=== PATIENT | female | born 1965 | race Caucasian/White ===

== ENCOUNTER 2019-12-31 11:59 | Inpatient (IN) | payer MEDICARE, OTHER ==
[~2019-12-31] VITALS: Ht 160 cm; Wt 91.6 kg
[2019-12-31] MEDS ORDERED: ACETAMINOPHEN 325 MG TABLET PO PRN (14:30)
[2019-12-31] MEDS ORDERED: BLOOD SUGAR DIAGNOSTIC 1 EACH STRIP IN ONE (14:30)
[2019-12-31] MEDS ORDERED: MAGNESIUM HYDROXIDE 30 ML UDC PO PRN (14:30)
--- NOTE | 2019-12-31 15:03 | NUR ---
RN-CO: Per patient she is not allergic to Restoril and Ativan.
[2019-12-31] MEDS ORDERED: ATEN25TA PO (15:07)
[2019-12-31] MEDS ORDERED: OXYC1TAB8 PO (15:07)
[2019-12-31] MEDS ORDERED: CLON0.5T4 PO (15:07)
--- NOTE | 2019-12-31 15:30 | NUR ---
GPS/RN-NOTES ADMITTED 54 YEARS OLD FEMALE .PATIENT WAS A DIRECT ADMIT FROM [facility]. PATIENT ON 5150 HOLD FOR DTS AND GD ADULT. UPON FACE TO FACE ASSESSMENT, PATIENT A/O X3 AMBULATORY STEADY GAIT. PATIENT DENIES SI/HI AT THIS TIME. PATIENT STATED" I DID NOT EAT FOR 7DAYS AND I HAVE PROBLEM WITH FOOD BECAUSE I HAVE GERD,I YOU PLEASE GIVE ME AT LEAST A SANDWICH I'M VERY HUNGRY".EGG SALAD SANDWICH WAS GIVEN TO THE PATIENT. PATIENT TOLERATED WELL. PATIENT REFUSED TO SIGN ALL ADMISSION PAPERS.STATED" I'M VERY TIRED ,CAN I REST". CONTRABAND AND FULL BODY ASSESSMENT DONE. PATIENT'S RIGHT BOOKLET AND ADVISEMENT WAS GIVEN TO THE PATIENT. PATIENT WAS ORIENTED IN THE UNIT AND UNIT POLICIES. PATIENT'S DOROTHY KATHLEEN [phone] MADE AWARE OF THE ADMISSION. DR. CUNNINGHAM MADE AWARE WITH ORDERS. ALSO RAFI DOMINGUEZ SEEN THE PATIENT AND WILL RECONCILE PT'S. MEDICATIONS. PATIENT REFUSED TO GIVE X1 WHITE RING ,STATED " I WANT TO WEAR IT". WILL ENDORSE TO INCOMING SHIFT FOR CONTINUITY OF CARE.
[2019-12-31 16:00] VITALS: BP 130/64
--- NOTE | 2019-12-31 16:41 | NUR ---
RN-CO: DR DOMINGUEZ MADE AWARE OF THE ADMISSION AND TO RECONCILE HOME MEDICATIONS.
[2019-12-31] MEDS: LORAZEPAM 0.5 MG TABLET PO PRN ×2 (17:08→21:16)
--- NOTE | 2019-12-31 17:15 | NUR ---
GPS/RN-NOTES NOTED PATIENT WITH HYPERVERBAL,PARANOID BEHAVIOR.STATED" I'M VERY ANXIOUS AND THOSE PEOPLE LIES ,WHAT EVER THEY SAID AND WRITE IS A LIE". OFFERED ATIVAN AND AGREED.ATIVAN 0.5MG P.O GIVEN PRN ORDER. WILL CONT. MONITORING FOR SAFETY AND BEHAVIOR.
[2019-12-31] MEDS: ATENOLOL 25 MG TABLET PO SCH (18:06)
--- NOTE | 2019-12-31 18:16 | NUR ---
GPS/RN-NOTES PATIENT EATING DINNER IN THE ROOM CALM,NO ACUTE DISTRESS NOTED.
[2019-12-31] MEDS ORDERED: CALCIUM CARBONATE 500 MG TAB.CHEW PO PRN (18:30)
[2019-12-31] MEDS: PANTOPRAZOLE 40 MG TABLET.DR PO SCH (19:34)
[2019-12-31 20:00] VITALS: BP 117/79
--- NOTE | 2019-12-31 21:16 | NUR ---
GPS RN NOTE: ANXIETY PT. C/O OF BEING ANXIOUS. ADMINISTERED ATIVAN 0.5 MG PO PRN ORDERED. WILL CONTINUE TO MONITOR FOR SAFETY AND BEHAVIOR
[2020-01-01] MEDS: LORAZEPAM 0.5 MG TABLET PO PRN ×3 (07:36→15:55)
--- NOTE | 2020-01-01 07:52 | NUR ---
GPS/RN pt c/o chest pain Ativan 0.5mg administered Joy DESKTOP ENGINEER called for the orders via Epic exchange. orders received and carried out
[2020-01-01 08:00] VITALS: BP 144/64
[2020-01-01] MEDS: ATENOLOL 25 MG TABLET PO SCH (08:31)
[2020-01-01] MEDS: PANTOPRAZOLE 40 MG TABLET.DR PO SCH ×2 (08:31→21:00)
[2020-01-01 10:11] LABS: CHOLESTEROL 120 mg/dL (<200); HDL CHOLESTEROL 45 mg/dL (40-60); LDL 61 mg/dL (0-99); TRIGLYCERIDES 141 mg/dL (30-150)
[2020-01-01 10:12] LABS: ALBUMIN 3.4 g/dL (3.4-5.0); BILIRUBIN,TOTAL 0.7 mg/dL (0.2-1.0); CALCIUM, SERUM 9.2 mg/dL (8.5-10.1); CREATININE 0.9 mg/dL (0.6-1.3)
[2020-01-01] MEDS: oxyCODONE/APAP (5/325 MG) 1 UDTAB TABLET PO PRN (12:30)
[2020-01-01 16:00] VITALS: BP 143/93
[2020-01-01] MEDS: MAG HYDROX/AL HYDROX/SIMETH 30 ML UDC PO PRN (17:49)
[2020-01-01] MEDS: CARBAMAZEPINE 200 MG TABLET PO SCH (18:51)
[2020-01-01] MEDS: chlorproMAZINE HCL 25 MG TABLET PO SCH (18:51)
[2020-01-01 20:32] VITALS: BP 124/74
--- NOTE | 2020-01-01 21:00 | NUR ---
GPS RN NOTE: MEDICATION REFUSAL PT. REFUSED SCHEDULED 2100 PROTONIX 40 MG PO. EXPLAINED RISKS AND BENEFITS. OFFERED 3X AND PT. STILL REFUSED. WILL CONTINUE TO MONITOR FOR SAFETY AND BEHAVIOR.
[2020-01-01] MEDS: TRAZODONE 50 MG TABLET PO SCH (21:21)
[2020-01-01] MEDS: TEMAZEPAM 7.5 MG CAPSULE PO PRN (21:23)
--- NOTE | 2020-01-01 21:23 | NUR ---
GPS RN NOTE: INSOMNIA PT. C/O OF UNABLE TO SLEEP. ADMINISTERED RESTORIL 15 MG PO PRN ORDERED. WILL CONTINUE TO MONITOR FOR SAFETY AND BEHAVIOR.
[2020-01-02] MEDS: oxyCODONE/APAP (5/325 MG) 1 UDTAB TABLET PO PRN ×3 (05:46→18:24)
[2020-01-02 08:00] VITALS: BP 147/59
[2020-01-02] MEDS: chlorproMAZINE HCL 25 MG TABLET PO SCH ×4 (08:09→16:54)
[2020-01-02] MEDS: PANTOPRAZOLE 40 MG TABLET.DR PO SCH ×2 (08:09→21:00)
[2020-01-02] MEDS: CARBAMAZEPINE 200 MG TABLET PO SCH ×4 (08:09→16:54)
[2020-01-02] MEDS: ATENOLOL 25 MG TABLET PO SCH (08:10)
[2020-01-02 08:50] VITALS: BP 131/68
--- NOTE | 2020-01-02 09:00 | NUR ---
RN NOTE- PT NEEDY INTRUSIVE CONSTANTLY WALKING IN [place] WITH STEADY GAIT CLAIMING VERTIGO AND PAIN. STATES 'IM PASSING OUT' SITTING ON FLOOR IN [place]. DISRUPTIVE. REDIRECTED VS TAKEN B/PM- 131/68, HR- 68, RR- 16, TEMP 98.4, SATURATION 96% RA. . PT EKG AND LABS YESTERDAY SHOW NO ABNORMALITIES. ALL NEEDS ATTENDED FREQUENT VISUAL CHECKS COMPLETED.
[2020-01-02 12:00] VITALS: BP 129/87
--- NOTE | 2020-01-02 12:00 | NUR ---
RN NOTE- C/O DIZZINESS SOB PRESSURE IN HEAD. VS - 129/87. HR- 86, RR- 18. TEMP 98.4 SATURATION 97% RA. DIRECTOR DIGITAL ADVERTISING ANGELICA NOTIFIED. PT STABLE. ENCOURAGED TO BE CALM
[2020-01-02] MEDS: hydrOXYzine PAMOATE 25 MG CAPSULE PO PRN (14:41)
[2020-01-02 14:42] VITALS: BP 131/91
--- NOTE | 2020-01-02 14:42 | NUR ---
RN NOTE - ANXIETY INCREASING. VISTARIL 25 MG GIVEN VS - B/P- 131/91 HR- 76 RR-16 T- 98.0 SATS 97%RA
[2020-01-02 16:00] VITALS: BP 135/69
[2020-01-02] MEDS: TRAZODONE 50 MG TABLET PO SCH (21:15)
[2020-01-02] MEDS: TEMAZEPAM 7.5 MG CAPSULE PO PRN (21:18)
[2020-01-02 21:20] VITALS: BP 147/95
--- NOTE | 2020-01-02 21:24 | NUR ---
GPS RN NOTES: REFUSED MED. NV REFUSED 2100 AND 2200 MEDICATION DUE. PT REFUSED PROTONIX AND TRAZODONE DUE. EXPLAIN RISKS AND BENEFITS. PT STILL REFUSED X3. CONTINUE TO MONITOR.
--- NOTE | 2020-01-02 21:26 | NUR ---
GPS RN NOTES: INSOMNIA PT C/O OF INSOMNIA. PT REQUESTED SLEEPING MEDICATION. OFFERED RESTORIL 15 MG PO PRN ORDERED. PT AGREED AND TOLERATED MEDICATION WELL. CONTINUE TO MONITOR.
[2020-01-03 00:08] VITALS: BP 128/77
[2020-01-03] MEDS: hydrOXYzine PAMOATE 25 MG CAPSULE PO PRN ×4 (00:18→22:23)
--- NOTE | 2020-01-03 00:19 | NUR ---
RN NOTE - ANXIETY PT C/O OF FEELING ANXIOUS. VITALS TAKEN AND WNL. NO S/S OF RESP DISTRESS. BREATHING EVEN AND UNLABORED. NO PAIN AT THIS TIME. VISTARIL 25 MG GIVEN. PT TOLERATED WELL. CONTINUE TO MONITOR
[2020-01-03 08:00] VITALS: BP 125/64
[2020-01-03] MEDS: PANTOPRAZOLE 40 MG TABLET.DR PO SCH ×3 (08:06→21:24)
[2020-01-03] MEDS: ATENOLOL 25 MG TABLET PO SCH (08:07)
[2020-01-03] MEDS: oxyCODONE/APAP (5/325 MG) 1 UDTAB TABLET PO PRN ×3 (08:07→13:52)
[2020-01-03] MEDS: CARBAMAZEPINE 200 MG TABLET PO SCH ×3 (08:12→17:00)
[2020-01-03] MEDS: chlorproMAZINE HCL 25 MG TABLET PO SCH ×3 (08:12→17:00)
--- NOTE | 2020-01-03 08:12 | NUR ---
RN NOTE: PAIN/ANXIETY/MEDICATION REFUSAL PT C/O 04/08 GENERALIZED PAIN AND 04/08 ANXIETY. MEDICATED WITH PERCOCET AND VISTARIL. PT REFUSED AM THORAZINE AND TEGRETOL. EDUCATED PT RE IMPORTANCE OF MEDICATION COMPLIANCE. PT CONT TO REFUSE X 3. WILL CONT TO ASSESS EFFECTIVENESS OF ANXIETY AND PAIN MEDICATIONS.
--- NOTE | 2020-01-03 10:50 | NUR ---
FAMILY CONTACT: SW attempted to call pts Kishor [phone] but there was no answer. SW left a voicemail for callback.
--- NOTE | 2020-01-03 10:58 | NUR ---
INITIAL DISCHARGE PLAN: Pt is homeless and needs SNF placement. SW will help form a safe and proper discharge in collaboration with MD.
--- NOTE | 2020-01-03 12:09 | NUR ---
RN NOTE: MEDICATION REFUSAL PT REFUSED 1300 MEDICATIONS. EDUCATED PT RE IMPORTANCE OF MEDICATION COMPLIANCE. PT CONT TO REFUSE X 3.
[2020-01-03] MEDS: MAG HYDROX/AL HYDROX/SIMETH 30 ML UDC PO PRN (12:34)
--- NOTE | 2020-01-03 12:34 | NUR ---
RN NOTE: PT C/O "UPSET STOMACH". MEDICATED WITH MAALOX PRN.
--- NOTE | 2020-01-03 13:48 | NUR ---
GROUP NOTE: SW encouraged pt to attend group therapy on this day to discuss pts mood and medication compliance. Pt refused to attend stating she wanted to leave today and will not take her medication because people are talking about her and wanting to hurt her. Pt did not engage in conversation and got up and went to the nurse to request to speak to the MD. Pt is labile and manic and is paranoid and hyperverbal.
--- NOTE | 2020-01-03 13:52 | NUR ---
RN NOTE: PAIN PT C/O 02/06 GENERALIZED PAIN. MEDICATED WITH PRN PERCOCET.
--- NOTE | 2020-01-03 14:07 | NUR ---
RN NOTE: ANXIETY PT C/O INCREASED ANXIETY. REQUESTING VISTARIL. PT MEDICATED WITH VISTARIL 25MG PRN PO
[2020-01-03 16:00] VITALS: BP 133/92
--- NOTE | 2020-01-03 17:00 | NUR ---
RN NOTE: MEDICATION REFUSAL PT REFUSED PSYCHIATRIC MEDICATIONS. EDUCATED PT RE IMPORTANCE OF MEDICATION COMPLIANCE. PT REFUSED MEDICATIONS X3.
[2020-01-03 20:15] VITALS: BP 123/74
[2020-01-03] MEDS: PAROXETINE HCL 10 MG TABLET PO SCH (21:21)
[2020-01-03] MEDS: TEMAZEPAM 7.5 MG CAPSULE PO PRN (21:22)
--- NOTE | 2020-01-03 21:22 | NUR ---
GPS-RN NOTE: PATIENT C/O INABILITY TO SLEEP. ADMINISTERED RESTORIL 15MG PO ORDERED. WILL CONTINUE TO MONITOR FOR SAFETY.
--- NOTE | 2020-01-03 22:23 | NUR ---
GPS-RN NOTE: ANXIETY PT C/O FEELING ANXIOUS. PT IS REQUESTING FOR VISTARIL. ADMINISTERED VISTARIL 25MG PO ORDERED. WILL CONTINUE TO MONITOR FOR SAFETY.
[2020-01-04] MEDS: oxyCODONE/APAP (5/325 MG) 1 UDTAB TABLET PO PRN (01:16)
[2020-01-04 02:15] VITALS: BP 135/85
--- NOTE | 2020-01-04 02:52 | NUR ---
GPS-RN NOTE: PATIENT C/O RIGHT FOOT NUMBNESS. UPON ASSESSMENT PATIENT ABLE TO MOVE HER BILATERAL FEET WITHOUT ANY DIFFICULTY AND PT. ABLE TO WALK WITH STEADY GAIT. VITALS SIGNS BP 135/85, PULSE 90, R19, TEMP 98.0, O2 SATURATION AT 95% ON RA. ELEVATED LOWER EXTREMITIES WITH PILLOWS TOLERATED. DORSALIS PEDIS PULSES ARE PALPABLE/PRESENT. PATIENT REMAINS INTRUSIVE, VERY NEEDY, DISORGANIZED, ATTENTION SEEKING, MANIPULATIVE, NEEDS FREQUENT REDIRECTION, ANXIOUS, PT IS PARANOID STATES "IS SOMEBODY HERE TRYING TO HURT ME?". REASSURED PT AND REORIENTATION PROVIDED. WILL CONTINUE TO MONITOR FOR SAFETY. 05:00 - PT HAS NO C/O RIGHT FOOT NUMBNESS AT THIS TIME. PACING IN AND OUT OF THE ROOM. PATIENT REMAINS CONFUSED, FEARFUL, DEMANDING, ANXIOUS AND RESTLESS. MEDICATION GIVEN ORDERED. WILL CONTINUE TO MONITOR FOR SAFETY AND BEHAVIOR. Addendum: 01/04/20 at 0548 by RHEA ORTIZ RN PATIENT C/O SHE IS BLIND PATIENT STATES "I CAN'T SEE". PATIENT IS PSYCHOSOMATIC. COMPLAINING OF PAIN ALL OVER HER BODY (GENERALIZED). PAIN MEDS GIVEN ORDERED.
[2020-01-04] MEDS: hydrOXYzine PAMOATE 25 MG CAPSULE PO PRN ×2 (05:10→11:38)
--- NOTE | 2020-01-04 05:12 | NUR ---
GPS-RN NOTE: ANXIETY PT C/O FEELING ANXIOUS. PT REQUESTED VISTARIL. ADMINISTERED VISTARIL 25MG PO ORDERED. WILL CONTINUE TO MONITOR FOR SAFETY.
[2020-01-04] MEDS ORDERED: OLANZAPINE 10 MG VIAL IM STA (07:38)
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
[2020-01-04 08:00] VITALS: BP 120/72
[2020-01-04] MEDS: ATENOLOL 25 MG TABLET PO SCH (08:00)
[2020-01-04] MEDS: chlorproMAZINE HCL 25 MG TABLET PO SCH ×3 (08:00→16:38)
[2020-01-04] MEDS: CARBAMAZEPINE 200 MG TABLET PO SCH ×3 (08:00→16:36)
--- NOTE | 2020-01-04 08:05 | NUR ---
RN NOTE PT IS CALM, COOPERATIVE, REDIRECTABLE. VITAL SIGNS BP: 123/77, P:110, R.R: 20, O2: 96 PT REFUSED TEMPERATURE. BODY ASSESSMENT DONE, NOTICED LACERATION ON THE LEFT THIRD FINGER AND PINKY FINGER. PICTURE PLACED IN THE CHART, WOUND CONSULT TRIGGERED.
[2020-01-04] MEDS: PANTOPRAZOLE 40 MG TABLET.DR PO SCH ×2 (09:00→21:00)
--- NOTE | 2020-01-04 11:42 | NUR ---
GPS RN NOTE: PT PARANOID ,ANXIOUS VISTARIL 25 MG PO PRN GIVEN WILL CONTINUE MONITORING
--- NOTE | 2020-01-04 11:51 | NUR ---
GPS RN NOTES PT IN DINING ROOM STARTED TO RUN TOWARDS THE TABLE THREW HERSELF ON THE TABLE AND FELL ON THE FLOOR. NOTICED NO INJURY AT THE TIME. PT DENIES PAIN, INCIDENT REPORT DONE. DR CUNNINGHAM NOTIFIED, PT IS 1-[address] DOMINGUEZ AWARE WITH ORDER TO MONITOR, NURSING HIGH SCHOOL COACH INFORMED. WILL CONTINUE TO MONITOR Q15 MIN FOR SAFETY AND BEHAVIOR
[2020-01-04 12:31] VITALS: BP 138/83
--- NOTE | 2020-01-04 13:46 | NUR ---
GROUP NOTE: Pt is inappropriate for group as pt is manic and psychotic. Pt received an IM this morning and was observed a few hours after receiving the Im throwing herself on the floor. Pt is somnolent at this time and refusing to speak to SW.
[2020-01-04 16:00] VITALS: BP 119/71
--- NOTE | 2020-01-04 16:48 | NUR ---
GPS RN NOTE: PT WALKING IN THE UNIT RESTLESS , PARANOID,DELUSIONAL, UNPREDICTABLE,UNABLE TO CONTROL BEHAVIOR AT TIMES THINKING STAFF AFTER HER, PEOPLE TRYING TO HURT HER, REFUSED THORAZINE 50 MG PO TID EXPLAIN RISK AND BENEFITS X3 PT CONTINUE TO REFUSE MEDICATIONS PT ON 1:1 FOR BEHAVIOR AND SAFETY
[2020-01-04 20:38] VITALS: BP 141/68
[2020-01-04] MEDS: PAROXETINE HCL 10 MG TABLET PO SCH (22:00)
[2020-01-05] MEDS: hydrOXYzine PAMOATE 25 MG CAPSULE PO PRN (06:44)
[2020-01-05 08:00] VITALS: BP 143/92
[2020-01-05] MEDS: PANTOPRAZOLE 40 MG TABLET.DR PO SCH ×2 (08:43→21:18)
[2020-01-05] MEDS: CARBAMAZEPINE 200 MG TABLET PO SCH ×3 (08:43→17:47)
[2020-01-05] MEDS: ATENOLOL 25 MG TABLET PO SCH (08:44)
[2020-01-05] MEDS: chlorproMAZINE HCL 25 MG TABLET PO SCH ×3 (08:48→17:00)
--- NOTE | 2020-01-05 08:49 | NUR ---
GPS/RN-NOTES RECEIVED PATIENT AWAKE,ALERT SITTING IN BED,GUARDED,CALM AT THIS TIME,NO ACUTE DISTRESS NOTED. PATIENT SELECTIVE WITH MEDICATIONS. REFUSED THORAZINE 50MG P.O .STATED" I WILL TAKE MEDICATIONS EXCEPT THORAZINE". EXPLAINED RISK AND BENEFITS BUT PATIENT STILL REFUSED. OFFERED X3. WILL CONT. ON 1:1 MONITORING FOR SAFETY AND BEHAVIOR.
[2020-01-05] MEDS: oxyCODONE/APAP (5/325 MG) 1 UDTAB TABLET PO PRN ×2 (09:41→13:56)
--- NOTE | 2020-01-05 09:45 | NUR ---
GPS RN NOTE UPON CHECKING ON PATIENT SHE STATED "I AM HAVING HORRIBLE PAIN IN MY RIBS, 9/10 AND WANT MEDICATION AND WANT AN X-RAY". INFORMED DR. DOMINGUEZ AND ORDERED X-RAY. AT 0941 ADMINISTERED PERCOCET. WILL REASSESS AND CONTINUE TO MONITOR AT Q15 MIN FOR SAFETY AND BEHAVIOR.
--- NOTE | 2020-01-05 10:48 | NUR ---
FAMILY CONTACT: SW received a call from pts Kishor [phone] providing SW with collateral information. Per he states that pts health has declined in the past month due to high blood pressure and anxiety. Per , pt has never had any psychiatric symptoms and has never acted bizarrely, psychotic, or manic. Per , pt has never had any problems. SW provided him with an update on pts behavior and also informed him that the MD has filed for a medication capacity hearing. states that he has trained pt how to be vigilant and states that she is not paranoid just aware of her surroundings. 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 then stated that if pt needs short/long-term care that he knew a place where pt can be discharged to. SW will consult with MD for appropriate and safe discharge planning.
--- NOTE | 2020-01-05 11:22 | NUR ---
WOUND CARE CONSULT: PT PRESENTS WITH ABRASIONS TO LEFT FINGERS AND BREASTFOLD RASH. DISCUSSED WITH NURSING STAFF AND Paris DOMINGUEZ DNP. WILL SEE PRN. BOWMAN IN AGREEMENT WITH PLAN OF CARE. Addendum: 01/05/20 at 1123 by CARLOS SALGUERO WNDNU Amended: Links added.
--- NOTE | 2020-01-05 13:58 | NUR ---
GPS/RN NOTE PATIENT COMPLAINED OF 9/10 PAIN ON HER LEFT RIB CAGE STATED "I NEED A PERCOCET MY RIB AND BACK ARE HURTING REALLY BAD". ADMINISTERED PERCOCET 325MG PO TAB PRN FOR LEFT RIB CAGE PAIN @1356. WILL REASSESS AND DO Q15MIN CHECKS FOR SAFETY AND BEHAVIOR.
[2020-01-05] MEDS: CLOTRIMAZOLE 1% 15 GM TUBE TP SCH ×2 (15:30→17:30)
[2020-01-05] MEDS: BACITRACIN ZINC OINT PACKET 1 EA PACKET TP SCH ×2 (15:31→17:29)
[2020-01-05 16:00] VITALS: BP 114/69
--- NOTE | 2020-01-05 16:19 | NUR ---
RNC-: PATIENT COMPLAINED OF POOR APPETITE, PER HOUSING GRANT ANALYST TO CHANGE THE ORDER FROM CARDIAC TO REGULAR. AND ORDER ENSURE TID WITH FOOD, NOTED.
[2020-01-05] MEDS: ENSURE ENLIVE CHOC 237 ML CAN PO SCH (17:05)
[2020-01-05 20:00] VITALS: BP 118/61
[2020-01-05] MEDS: PAROXETINE HCL 10 MG TABLET PO SCH (22:00)
--- NOTE | 2020-01-05 22:05 | NUR ---
GPS RN NOTE: PATIENT IS RESTLESS, DISORGANIZED, REFUSED TO TAKE 2200 MEDICATION PAXIL 10MG PO ORDERED. PER PT "I USE TO TAKE JUST ONE MEDICATION, NOW YOU GUYS ARE GIVING ME TOO MANY MEDICATIONS TO DRUG ME". TEACHING PROVIDED ON WHY SHE'S ON THIS MEDICATION AND THE IMPORTANCE OF MEDICATION REGIMEN BUT PATIENT STILL REFUSED THE MED. WILL CONTINUE TO MONITOR PT FOR MOOD, SAFETY AND BEHAVIOR.
[2020-01-05] MEDS: TEMAZEPAM 7.5 MG CAPSULE PO PRN (23:25)
--- NOTE | 2020-01-05 23:25 | NUR ---
GPS RN NOTE: PT REQUESTED FOR SLEEP MEDICATION DUE TO INSOMNIA. RESTORIL 7.5MG 2 TABS GIVEN PO ORDERED. PT CURRENTLY LAYING IN BED. WILL CONTINUE TO MONITOR.
--- NOTE | 2020-01-05 23:32 | NUR ---
GPS RN NOTE: PT IS PARANOID, RESTLESS, LABILE, DISORGANIZED, LOOSE ASS[employer]IATIONS. AFTER PATIENT VERIFIED AND TOOK RESTORIL 7.5MG 2 TABS (15MG) PO FOR SLEEP UPON REQUEST. A FEW MINUTES LATER PATIENT STARTED ASKING "I'M SCARED, ARE YOU SURE THE MEDICATION YOU GAVE ME IS FOR SLEEP". PATIENT REASSURED SHE WAS GIVEN RESTORIL FOR SLEEP AND THAT SHE IS SAFE. WILL CONTINUE TO MONITOR FOR PT SAFETY, MOOD AND BEHAVIOR.
--- NOTE | 2020-01-06 00:28 | NUR ---
GPS RN NOTE: PT CURRENTLY LAYING IN BED SLEEPING. RESPIRATION EVEN AND UNLABORED WITH EQUAL RISE AND FALL OF THE CHEST, ON ROOM AIR. NO S/S OF DISTRESS. WILL CONTINUE TO MONITOR.
[2020-01-06] MEDS: oxyCODONE/APAP (5/325 MG) 1 UDTAB TABLET PO PRN ×3 (06:10→23:52)
--- NOTE | 2020-01-06 06:15 | NUR ---
GPS RN NOTE: AT 0608 PT WOKE UP AND COMPLAINED OF PAIN ON HER LEFT RIB CAGE, RATES PAIN LEVEL 7/10. PERCOCET 5MG/325MG 1 TAB GIVEN PO ORDERED. WILL CONTINUE TO MONITOR AND REASSESS.
--- NOTE | 2020-01-06 07:11 | NUR ---
GPS RN NOTE: PT CURRENTLY SLEEPING, RESPIRATION EVEN AND UNLABORED WITH EQUAL RISE AND FALL OF THE CHEST. NO S/S OF ANY DISTRESS. ENDORSING TO AM NURSE.
[2020-01-06 08:00] VITALS: BP 114/57
[2020-01-06] MEDS: ENSURE ENLIVE CHOC 237 ML CAN PO SCH ×3 (08:26→16:28)
[2020-01-06] MEDS: ATENOLOL 25 MG TABLET PO SCH (08:26)
[2020-01-06] MEDS: PANTOPRAZOLE 40 MG TABLET.DR PO SCH ×2 (08:26→21:00)
[2020-01-06] MEDS: CARBAMAZEPINE 200 MG TABLET PO SCH ×3 (08:26→16:34)
[2020-01-06] MEDS: CLOTRIMAZOLE 1% 15 GM TUBE TP SCH ×2 (08:27→16:35)
[2020-01-06] MEDS: chlorproMAZINE HCL 25 MG TABLET PO SCH ×3 (08:27→16:34)
[2020-01-06] MEDS: BACITRACIN ZINC OINT PACKET 1 EA PACKET TP SCH ×2 (08:27→16:35)
--- NOTE | 2020-01-06 08:27 | NUR ---
Patient refused all am meds. Education provided; risks and benefits explained . Patient still strongly refuse.
[2020-01-06] MEDS: hydrOXYzine PAMOATE 25 MG CAPSULE PO PRN (09:18)
--- NOTE | 2020-01-06 09:24 | NUR ---
GPS RN NOTE: ANXIETY UPON ASSESSMENT PT STATED "I'M HAVING ANXIETY I FEEL LIKE I'M GOING TO PASS OUT FROM BEING SO ANXIOUS, CAN I TAKE VISTARIL". ADMINISTERED VISTARIL 25MG PRN @0918. VSS, 1:1 SITTER STILL INITIATED. WILL REASSESS, MONITOR Q15MIN FOR SAFETY AND BEHAVIOR.
[2020-01-06 11:05] VITALS: BP 127/67
--- NOTE | 2020-01-06 11:05 | NUR ---
Patient remains anxious, present with paranoid ideation and mood swings. Noted with poor appetite. Patient stats she has high blood pressure. BP rechecked and its within normal range. Sitter at bedside for safety.
--- NOTE | 2020-01-06 15:44 | NUR ---
GROUP NOTE: Pt is inappropriate for group as pt is manic and psychotic and refusing medications. Pt is on a 1:1 sitter for safety. Pt refused to engage in conversation with SW.
[2020-01-06 15:49] VITALS: BP 144/85
--- NOTE | 2020-01-06 16:31 | NUR ---
Patient refused Tegretol and Thorazine scheduled for 1700pm. Patient stated ; I will not take it , I am light headed and this medication will kill me.
--- NOTE | 2020-01-06 17:47 | NUR ---
Dr. Nam made aware of the [facility] Hearing scheduled for tomorrow 01/07/2020 at 10:30 AM.
--- NOTE | 2020-01-06 18:50 | NUR ---
GPS RN NOTE: PAIN PATIENT COMPLAINED OF 10/10 PAIN ON THE LEFT RIB CAGE. ADMINISTERED PERCOCET 1849 WILL LET TANK INSPECTOR KNOW TO REASSESS AND CONTINUE TO MONITOR Q15 FOR SAFETY AND BEHAVIOR.
--- NOTE | 2020-01-06 19:30 | NUR ---
GPS/ANIMATION DIRECTOR NOTES: PT. C/O PAIN AND REQUESTED FOR ICE PACK. ICE PACK GIVEN. WILL CONTINUE TO MONITOR.
[2020-01-06 19:32] VITALS: BP 137/82
[2020-01-06] MEDS: PAROXETINE HCL 10 MG TABLET PO SCH (21:15)
--- NOTE | 2020-01-06 21:15 | NUR ---
GPS/INDUSTRIAL ENGINEERING INTERN NOTES: PT. REFUSED ALL HS MEDS. OFFERED 3X. EXPLAINED RISK AND BENEFITS. PT. STILL REFUSED.
[2020-01-06] MEDS: TEMAZEPAM 7.5 MG CAPSULE PO PRN (22:10)
[2020-01-07 08:00] VITALS: BP 131/87
[2020-01-07] MEDS: oxyCODONE/APAP (5/325 MG) 1 UDTAB TABLET PO PRN ×2 (08:23→15:51)
[2020-01-07] MEDS: ENSURE ENLIVE CHOC 237 ML CAN PO SCH ×3 (08:23→17:09)
--- NOTE | 2020-01-07 08:23 | NUR ---
RN NOTES ADMINISTERED PERCOCET 5/325 MG PO PRN FOR LEFT MID ABDOMINAL REGION PAIN 02/06 PER PATIENT REQUEST, V/S TAKEN BP-140/67, 90, R-20. CONTINUED MONITORING.
[2020-01-07] MEDS: PANTOPRAZOLE 40 MG TABLET.DR PO SCH ×2 (08:25→21:00)
[2020-01-07] MEDS: ATENOLOL 25 MG TABLET PO SCH (08:26)
[2020-01-07] MEDS: chlorproMAZINE HCL 25 MG TABLET PO SCH (08:26)
[2020-01-07] MEDS: CARBAMAZEPINE 200 MG TABLET PO SCH ×4 (08:26→17:13)
[2020-01-07] MEDS: BACITRACIN ZINC OINT PACKET 1 EA PACKET TP SCH ×2 (08:27→17:00)
[2020-01-07] MEDS: CLOTRIMAZOLE 1% 15 GM TUBE TP SCH ×2 (08:28→17:00)
--- NOTE | 2020-01-07 09:00 | NUR ---
RN NOTES PATIENT REFUSED SCHEDULED MEDICATION, PATIENT STATE "I DO NOT NEEDED NOW MAYBE LATER". PATIENT NEEDY, GET IRRITABLE EASILY, 1:1 SITTER NEXT TO THE BED FOR SAFETY. CONTINUED MONITORING.
--- NOTE | 2020-01-07 12:30 | NUR ---
FAMILY CONTACT: MECHE received a call from pts Kishor [phone] SW stated she would return his call as SW was currently on another call.
[2020-01-07] MEDS: BENZTROPINE MESYLATE (1 MG) 1 MG TABLET PO SCH ×2 (12:32→17:13)
[2020-01-07] MEDS: diphenhydrAMINE HCL 50 MG/ML VIAL IM PRN (12:35)
--- NOTE | 2020-01-07 12:42 | NUR ---
rn notes patient refused scheduled Cogentin. administered Benadryl 25 mg/ml IM per refusal of PO Cogentin. patient on Riese order.
--- NOTE | 2020-01-07 13:10 | NUR ---
FAMILY CONTACT: SW contacted pts Kishor [phone] and there was a busy tone. Unable to reach him at this time.
--- NOTE | 2020-01-07 13:27 | NUR ---
FAMILY CONTACT: SW contacted pts Kishor [phone] and there was a busy tone. Unable to reach him at this time.
--- NOTE | 2020-01-07 13:38 | NUR ---
FAMILY CONTACT: SW contacted pts Kishor [phone] and left a voicemail for callback.
--- NOTE | 2020-01-07 13:47 | NUR ---
FAMILY CONTACT: SW contacted pts Kishor [phone] and left a voicemail for callback.
--- NOTE | 2020-01-07 14:30 | NUR ---
GROUP NOTE: Pt is inappropriate for group as pt is manic and psychotic and is now RIESED. Pt is on a 1:1 sitter for safety. Pt refused to engage in conversation with SW.
[2020-01-07] MEDS: HALOPERIDOL 5 MG TABLET PO SCH ×2 (14:36→17:00)
--- NOTE | 2020-01-07 15:51 | NUR ---
RN NOTES ADMINISTERED PERCOCET 5/325 MG PO PRN FOR GENERALIZED PAIN PER PATIENT REQUEST 8/10 PER PAIN SCALE, V/S TAKEN BP-144/69,P100, R-20. CONTINUED MONITORING.
[2020-01-07 16:00] VITALS: BP 144/69
[2020-01-07] MEDS: HALOPERIDOL LACTATE INJ 5 MG/ML VIAL IM PRN (17:17)
--- NOTE | 2020-01-07 17:18 | NUR ---
rn notes patient refused Tegretol po, and Haldol 5 po, administered Haldol 5 mg/ml im right outer gluteal area per refusal po Haldol. Continued monitoring.
[2020-01-07] MEDS: hydrOXYzine PAMOATE 25 MG CAPSULE PO PRN (17:44)
--- NOTE | 2020-01-07 17:44 | NUR ---
RN NOTES ADMINISTERED VISTARIL 25 MG PO PRN FOR ANXIETY PER PATIENT REQUEST.
[2020-01-07] MEDS: TEMAZEPAM 7.5 MG CAPSULE PO PRN (21:14)
--- NOTE | 2020-01-07 21:14 | NUR ---
GPS RN NOTE: INSOMNIA PT. C/O UNABLE TO SLEEP. ADMINISTERED RESTORIL 15 MG PO PRN ORDERED. WILL CONTINUE TO MONITOR FOR SAFETY AND BEHAVIOR
[2020-01-07] MEDS: PAROXETINE HCL 10 MG TABLET PO SCH (21:17)
[2020-01-08 08:00] VITALS: BP 124/74
[2020-01-08] MEDS: HALOPERIDOL 5 MG TABLET PO SCH ×3 (09:00→17:00)
[2020-01-08] MEDS: BENZTROPINE MESYLATE (1 MG) 1 MG TABLET PO SCH ×3 (09:00→17:00)
[2020-01-08] MEDS: PANTOPRAZOLE 40 MG TABLET.DR PO SCH ×2 (09:31→21:00)
[2020-01-08] MEDS: ATENOLOL 25 MG TABLET PO SCH (09:32)
[2020-01-08] MEDS: CARBAMAZEPINE 200 MG TABLET PO SCH ×3 (09:32→17:00)
[2020-01-08] MEDS: diphenhydrAMINE HCL 50 MG/ML VIAL IM PRN ×2 (09:33→17:51)
[2020-01-08] MEDS: HALOPERIDOL LACTATE INJ 5 MG/ML VIAL IM PRN ×2 (09:33→17:51)
--- NOTE | 2020-01-08 10:00 | NUR ---
refused po haldol and cogentin so injections given as per riese orders.
[2020-01-08] MEDS: BACITRACIN ZINC OINT PACKET 1 EA PACKET TP SCH ×2 (10:23→16:18)
[2020-01-08] MEDS: CLOTRIMAZOLE 1% 15 GM TUBE TP SCH ×2 (10:23→16:19)
[2020-01-08] MEDS: ENSURE ENLIVE CHOC 237 ML CAN PO SCH ×3 (10:26→17:53)
[2020-01-08] MEDS: oxyCODONE/APAP (5/325 MG) 1 UDTAB TABLET PO PRN (12:28)
--- NOTE | 2020-01-08 12:28 | NUR ---
medicated for lt. rib pain with percocet.
--- NOTE | 2020-01-08 13:10 | NUR ---
c/o sob.vs taken rr18,bp149/84 heart rate 80,pox 94%.rn encouraged pt. to lie down and take it easy.pt. request haldol and cogentin be given at 2pm.
--- NOTE | 2020-01-08 13:41 | NUR ---
now out in [place] asking for relaxing med.
[2020-01-08 16:00] VITALS: BP 134/86
--- NOTE | 2020-01-08 17:02 | NUR ---
going on and on about med regimen and states she can refuse anything she wants,additionally spoke to chargemaster specialist regarding meds.
--- NOTE | 2020-01-08 18:05 | NUR ---
haldol po and margot refused so injectable benadryl and haldol given.
[2020-01-08 20:05] VITALS: BP 146/82
[2020-01-08] MEDS: TEMAZEPAM 7.5 MG CAPSULE PO PRN (21:20)
--- NOTE | 2020-01-08 21:20 | NUR ---
GPS RN NOTE: INSOMNIA PT. C/O UNABLE TO SLEEP. ADMINISTERED RESTORIL 15 MG PO PRN ORDERED. WILL CONTINUE TO MONITOR FOR SAFETY AND BEHAVIOR
[2020-01-08] MEDS: PAROXETINE HCL 10 MG TABLET PO SCH (21:24)
--- NOTE | 2020-01-08 21:24 | NUR ---
GPS RN NOTE: MEDICATION REFUSAL PT. REFUSED SCHEDULED NIGHT MEDICATIONS, PROTONIX 40 MG AND PAXIL 10 MG. EXPLAINED RISKS AND BENEFITS. OFFERED 3X AND PT. STILL REFUSED. WILL CONTINUE TO MONITOR FOR SAFETY AND BEHAVIOR.
[2020-01-09] MEDS: oxyCODONE/APAP (5/325 MG) 1 UDTAB TABLET PO PRN ×3 (05:10→20:05)
--- NOTE | 2020-01-09 05:10 | NUR ---
GPS RN NOTE: PAIN PT. C/O OF 10/10 PAIN IN RIB CAGE. ADMINISTERED PERCOCET 5/325 MG PO PRN ORDERED. WILL CONTINUE TO MONITOR FOR SAFETY AND BEHAVIOR
[2020-01-09 08:00] VITALS: BP 136/72
[2020-01-09] MEDS: ENSURE ENLIVE CHOC 237 ML CAN PO SCH ×3 (08:08→17:31)
[2020-01-09] MEDS: ATENOLOL 25 MG TABLET PO SCH (08:39)
[2020-01-09] MEDS: PANTOPRAZOLE 40 MG TABLET.DR PO SCH ×2 (08:39→21:17)
[2020-01-09] MEDS: CARBAMAZEPINE 200 MG TABLET PO SCH ×3 (08:39→17:00)
[2020-01-09] MEDS: HALOPERIDOL 5 MG TABLET PO SCH ×3 (08:39→17:30)
[2020-01-09] MEDS: BENZTROPINE MESYLATE (1 MG) 1 MG TABLET PO SCH ×3 (08:39→17:30)
[2020-01-09] MEDS: CLOTRIMAZOLE 1% 15 GM TUBE TP SCH ×2 (09:08→17:32)
[2020-01-09] MEDS: BACITRACIN ZINC OINT PACKET 1 EA PACKET TP SCH ×2 (09:12→17:31)
--- NOTE | 2020-01-09 13:05 | NUR ---
RN NOTE: PAIN PT C/O 03/09 LEFT RIB PAIN. MED WITH PERCOCET PRN. WILL MONITOR PAIN LEVEL AFTER ADMINISTRATION
--- NOTE | 2020-01-09 13:46 | NUR ---
RN NOTE: MEDICATION REFUSAL PT REFUSED 1300 DOSE TEGRETOL. EDU PT ON IMPORTANCE OF MEDICATION COMPLIANCE. PT REFUSED X3. COMPLIANT WITH 1300 DOSE HALDOL AND COGENTIN.
[2020-01-09 16:00] VITALS: BP 154/75
[2020-01-09] MEDS: hydrOXYzine PAMOATE 25 MG CAPSULE PO PRN (17:30)
--- NOTE | 2020-01-09 17:30 | NUR ---
RN NOTE: ANXIETY PT C/O INCREASED ANXIETY AND AGITATION. MEDICATED WITH VISTARIL PO PRN.
--- NOTE | 2020-01-09 17:30 | NUR ---
RN NOTE: MEDICATION REFUSAL PT REFUSED 1700 TEGRETOL. EDUCATED PT RE IMPORTANCE OF MEDIATION COMPLIANCE. PT CONT TO REFUSE X 3.
[2020-01-09 19:30] VITALS: BP 146/91
--- NOTE | 2020-01-09 20:05 | NUR ---
GPS-RN NOTE:GENERALIZED PAIN PATIENT C/O GENERALIZED PAIN ON A PAIN SCALE OF 7/10. PT REQUESTED FOR PERCOCET. PRN PERCOCET 5/325MG PO ORDERED. WILL CONTINUE TO MONITOR FOR EFFECTIVENESS OF MEDICATION.
[2020-01-09] MEDS: PAROXETINE HCL 10 MG TABLET PO SCH (21:18)
--- NOTE | 2020-01-09 21:21 | NUR ---
GPS RN NOTE: MED REFUSAL PT. REFUSED SCHEDULED NIGHT MEDICATION, PAXIL DOSE. EDUCATED PATIENT REGARDING THE IMPORTANCE OF MEDICATION COMPLIANCE. PATIENT STATED "NO, I DON'T WANT IT, IT MAKES ME AWAKE ALL NIGHT". PATIENT CONTINUED TO REFUSE X3. WILL CONTINUE TO MONITOR.
[2020-01-09] MEDS: TEMAZEPAM 7.5 MG CAPSULE PO PRN (21:48)
--- NOTE | 2020-01-09 21:48 | NUR ---
GPS RN NOTE: INSOMNIA PT. C/O INABILITY TO SLEEP. ADMINISTERED RESTORIL 15MG PO PRN ORDERED. WILL CONTINUE TO MONITOR.
[2020-01-10] MEDS: oxyCODONE/APAP (5/325 MG) 1 UDTAB TABLET PO PRN ×3 (00:35→18:42)
--- NOTE | 2020-01-10 00:36 | NUR ---
GPS-RN NOTE: LEFT RIB CAGE PAIN PATIENT C/O PAIN ON LEFT RIB CAGE ON A PAIN SCALE OF 7/10. PT REQUESTED FOR PERCOCET. PRN PERCOCET 5/325MG PO ORDERED. WILL CONTINUE TO MONITOR FOR EFFECTIVENESS OF MEDICATION.
[2020-01-10 08:00] VITALS: BP 127/87
--- NOTE | 2020-01-10 08:00 | NUR ---
FAMILY CONTACT: SW received a voicemail from pts Kishor [phone] requesting the utilization review department who is reviewing pts medications phone number so he can discuss pts current medications.
[2020-01-10] MEDS: BENZTROPINE MESYLATE (1 MG) 1 MG TABLET PO SCH ×3 (08:04→16:59)
[2020-01-10] MEDS: HALOPERIDOL 5 MG TABLET PO SCH ×3 (08:04→17:00)
[2020-01-10] MEDS: ATENOLOL 25 MG TABLET PO SCH (08:04)
[2020-01-10] MEDS: PANTOPRAZOLE 40 MG TABLET.DR PO SCH ×2 (08:04→21:16)
[2020-01-10] MEDS: ENSURE ENLIVE CHOC 237 ML CAN PO SCH ×3 (08:06→16:59)
[2020-01-10] MEDS: CARBAMAZEPINE 200 MG TABLET PO SCH ×3 (08:06→17:00)
[2020-01-10] MEDS: BACITRACIN ZINC OINT PACKET 1 EA PACKET TP SCH ×2 (08:26→17:03)
[2020-01-10] MEDS: CLOTRIMAZOLE 1% 15 GM TUBE TP SCH ×2 (08:26→16:59)
--- NOTE | 2020-01-10 09:00 | NUR ---
RN NOTE- PT IN BED, CONTINUED C/O MEDS MAKING HER 'VISION GO IN AND OUT' ALSO STATES 'DOCTOR DOESNT KNOW WHAT HES DOING. MEDICATIONS MAKING ME WORSE' PT MED COMPLIANT THOUGH REFUSED TEGRETOL ONLY. PO INTAKE SLIGHTLY BETTER. DENIES SI HI VH
[2020-01-10] MEDS: MAG HYDROX/AL HYDROX/SIMETH 30 ML UDC PO PRN (09:15)
--- NOTE | 2020-01-10 09:18 | NUR ---
RN NOTE- PT W DYSPEPSIA. MAALOX 30 CC GIVEN
--- NOTE | 2020-01-10 09:45 | NUR ---
RN NOTE- WOUND CARE PERFORMED. NS CLEANSED FINGER AND BACITRACIN APPLIED. LOTRIMIN MADE AVAILABLE FOR PT TO APPLY TO BREAST FOLDS
--- NOTE | 2020-01-10 10:49 | NUR ---
FAMILY CONTACT: MECHE contacted pts Kishor [phone] and left a voicemail for callback. Addendum: 01/10/20 at 1137 by LINDA MCGREGOR MECHE explained in the voicemail that there is no UR department who reviews medications. MECHE explained that pt is currently RIESEStorm and pts assigned psychiatrist is the one who is reviewing pts medications. MECHE explained that pt has to take the medications prescribed to her by MD as legally she cannot refuse. MECHE provided with Dr. Nam's office number so he can contact him to discuss any concerns he may have with pts current antipsychotics.
[2020-01-10] MEDS: hydrOXYzine PAMOATE 25 MG CAPSULE PO PRN (12:02)
[2020-01-10 16:00] VITALS: BP 118/74
--- NOTE | 2020-01-10 16:09 | NUR ---
Individual Counseling: This SW met with the patient at bedside to provide counseling regarding support systems. Patient discussed her relationship with , Kishor. Patient remained calm and cooperative throughout discussion. Patient will be invited to participate in the next therapeutic milieu.
[2020-01-10 20:09] VITALS: BP 119/79
[2020-01-10] MEDS: PAROXETINE HCL 10 MG TABLET PO SCH (21:20)
[2020-01-10] MEDS: TEMAZEPAM 7.5 MG CAPSULE PO PRN (21:20)
--- NOTE | 2020-01-10 22:00 | NUR ---
RN GPS NOTE: INSOMNIA PATIENT COMPLAINED OF INSOMNIA AND NEEDING RESTORIL. ADMINISTERED RESTORIL @0. WILL REASSESS AND MONITOR Q15 MIN FOR SAFETY AND BEHAVIOR.
--- NOTE | 2020-01-10 22:10 | NUR ---
GPS RN NOTE PATIENT REFUSED PM 10MG PAXIL FOR THE LAST 7 DAYS, DR. CUNNINGHAM D/C PM PAXIL AND SWITCHED IT TO 0900. WILL CONTINUE TO MONITOR Q15 MIN FOR SAFETY AND BEHAVIOR
[2020-01-11] MEDS: oxyCODONE/APAP (5/325 MG) 1 UDTAB TABLET PO PRN ×3 (00:16→20:05)
--- NOTE | 2020-01-11 00:20 | NUR ---
GPS RN NOTE: GENERALIZED PAIN PATIENT COMPLAINED OF 9/10, THROBBING, ACHING, SHARP, LEFT SIDE OF THE RIB PAIN. PATIENT STATED "I CAN'T SLEEP WITH THIS PAIN CAN I HAVE MY PERCOCET". ADMINISTERED PERCOCET 1 TAB PRN @0016. WILL REASSESS AND CONTINUE TO MONITOR Q15 MIN FOR SAFETY AND BEHAVIOR.
[2020-01-11 00:24] VITALS: BP 116/72
[2020-01-11 08:00] VITALS: BP 145/67
[2020-01-11] MEDS: ENSURE ENLIVE CHOC 237 ML CAN PO SCH ×3 (08:24→16:42)
[2020-01-11] MEDS: PANTOPRAZOLE 40 MG TABLET.DR PO SCH ×2 (08:24→21:00)
[2020-01-11] MEDS: HALOPERIDOL 5 MG TABLET PO SCH ×3 (08:24→16:41)
[2020-01-11] MEDS: BENZTROPINE MESYLATE (1 MG) 1 MG TABLET PO SCH ×3 (08:24→16:42)
[2020-01-11] MEDS: CARBAMAZEPINE 200 MG TABLET PO SCH ×3 (08:25→16:46)
[2020-01-11] MEDS: ATENOLOL 25 MG TABLET PO SCH (08:25)
[2020-01-11] MEDS: PAROXETINE HCL 10 MG TABLET PO SCH (08:27)
[2020-01-11] MEDS: CLOTRIMAZOLE 1% 15 GM TUBE TP SCH ×2 (08:27→16:54)
[2020-01-11] MEDS: BACITRACIN ZINC OINT PACKET 1 EA PACKET TP SCH ×2 (08:27→16:54)
--- NOTE | 2020-01-11 09:00 | NUR ---
RN NOTE-BETTER TODAY LESS INTRUSIVE LESS BEHAVIORAL ISSUES PT STATES "MEDICATIONS ARE HELPING ME THINK CLEARER" MED COMPLIANT EXCEPT TEGRETOL PAIN DECREASED W OXYCODONE PO INTAKE STILL DECREASED ENCOURAGED INTAKE AND FLUIDS DENIES ALL
[2020-01-11] MEDS: hydrOXYzine PAMOATE 25 MG CAPSULE PO PRN (14:45)
--- NOTE | 2020-01-11 15:14 | NUR ---
INDIVIDUAL INTERVENTION: SW attempted to provide individual milieu to pt however, pt refused stating she was on the phone wth her and that was more important than talking to SW.
[2020-01-11 16:00] VITALS: BP 143/92
--- NOTE | 2020-01-11 16:47 | NUR ---
RN NOTE: MEDICATION REFUSAL PT REFUSED 1700 TEGRETOL DOSE. EDUCATED PT RE IMPORTANCE OF MEDICATION COMPLIANCE.
[2020-01-11 20:01] VITALS: BP 138/86
--- NOTE | 2020-01-11 21:30 | NUR ---
GPS RN NOTES: PT REFUSED 2100 MEDICATION PROTONIX 40MG 1 TAB PO ORDERED. STATES "I DON'T WANT ANY MEDICATION TONIGHT EXCEPT MY SLEEPING MEDICATION". WILL CONTINUE TO MONITOR
[2020-01-11] MEDS: TEMAZEPAM 7.5 MG CAPSULE PO PRN (22:13)
[2020-01-12 08:00] VITALS: BP 140/75
[2020-01-12] MEDS: ATENOLOL 25 MG TABLET PO SCH (08:11)
[2020-01-12] MEDS: PAROXETINE HCL 10 MG TABLET PO SCH (08:11)
[2020-01-12] MEDS: BENZTROPINE MESYLATE (1 MG) 1 MG TABLET PO SCH ×3 (08:11→16:23)
[2020-01-12] MEDS: CARBAMAZEPINE 200 MG TABLET PO SCH ×5 (08:11→16:24)
[2020-01-12] MEDS: HALOPERIDOL 5 MG TABLET PO SCH ×3 (08:12→16:23)
[2020-01-12] MEDS: PANTOPRAZOLE 40 MG TABLET.DR PO SCH ×2 (08:12→20:14)
[2020-01-12] MEDS: ENSURE ENLIVE CHOC 237 ML CAN PO SCH ×3 (08:12→16:23)
--- NOTE | 2020-01-12 09:00 | NUR ---
PATIENT IS SITTING UP IN BED, COMPLIANT WITH MEDICATIONS BUT REFUSED TEGRETOL. PATIENT THEN LATER TOLD ME SHE CHANGED HER MIND AND WANTS TO TAKE TEGRETOL AT THIS TIME. SHE IS NOW LAYING IN BED. SAFETY PRECAUTIONS IN PLACE.
--- NOTE | 2020-01-12 09:20 | NUR ---
FAMILY CONTACT: MECHE contacted pts Kishor [phone] to discuss discharge plan for Friday01/14/20 and drop off location. SW informed him that [facility] will be arranging transportation for pt. provided SW with an address for drop off. ([address], [place] [address]).
--- NOTE | 2020-01-12 09:25 | NUR ---
TRANSPORTATION: MECHE contacted Araceli [phone] with [facility] to arrange transportation for Friday01/14/20. Araceli stated that transportation will be arranged between 12:00-1:00pm.
[2020-01-12] MEDS: BACITRACIN ZINC OINT PACKET 1 EA PACKET TP SCH ×2 (09:42→16:24)
[2020-01-12] MEDS: CLOTRIMAZOLE 1% 15 GM TUBE TP SCH ×2 (09:42→16:24)
[2020-01-12] MEDS: oxyCODONE/APAP (5/325 MG) 1 UDTAB TABLET PO PRN ×3 (09:50→20:15)
[2020-01-12] MEDS: hydrOXYzine PAMOATE 25 MG CAPSULE PO PRN ×2 (11:51→16:39)
[2020-01-12 16:00] VITALS: BP 136/81
--- NOTE | 2020-01-12 16:30 | NUR ---
PT. ENDORSED TO ME,NO BEHAVIOR ISSUES.GIVEN VISTAIL FOR ANXIETY.
[2020-01-12 20:00] VITALS: BP 121/94
[2020-01-13] MEDS: oxyCODONE/APAP (5/325 MG) 1 UDTAB TABLET PO PRN ×3 (05:44→19:59)
--- NOTE | 2020-01-13 07:03 | NUR ---
GPS RN OPENING NOTES RECEIVED PT AWAKE IN BED AT THIS TIME AO X3. COOPERATIVE, ABLE TO MAKE NEEDS KNOWN. NO S/S OF ANY ACUTE DISTRESS NOTED. RESPIRATION EVEN AND UNLABORED WITH EQUAL RISE AND FALL OF THE CHEST. PT DENIES SI AT THIS TIME. SAFETY PRECAUTIONS IN PLACE AND OBSERVED AT ALL TIMES. BED IN LOWEST LOCKED POSITION, SIDE RAILS UP,HOB ELEVATED TO SEMI FOWLERS POSITION, CALL LIGHT WITHIN REACH. WILL CONTINUE TO MONITOR Q 15 MIN FOR SAFETY AND BEHAVIOR.
[2020-01-13 08:00] VITALS: BP 142/60
[2020-01-13] MEDS: ENSURE ENLIVE CHOC 237 ML CAN PO SCH ×3 (08:26→16:47)
[2020-01-13] MEDS: BENZTROPINE MESYLATE (1 MG) 1 MG TABLET PO SCH ×3 (08:29→16:49)
[2020-01-13] MEDS: PANTOPRAZOLE 40 MG TABLET.DR PO SCH ×2 (08:29→20:03)
[2020-01-13] MEDS: hydrOXYzine PAMOATE 25 MG CAPSULE PO PRN (08:29)
[2020-01-13] MEDS: HALOPERIDOL 5 MG TABLET PO SCH ×3 (08:29→16:49)
[2020-01-13] MEDS: PAROXETINE HCL 10 MG TABLET PO SCH (08:30)
--- NOTE | 2020-01-13 08:30 | NUR ---
PATIENT REPORTS HAVING ANXIETY AND REQUESTED VISTARIL. PER PATIENT REQUEST, VISTARIL 25MG PO Q4HRS PRN WAS ADMINISTERED AFTER CHECKING VITAL SIGNS BP 142/60 HR 72, RR 18, TEMP 98.1, SPO2 AT 97%. WILL CONTINUE TO MONITOR
[2020-01-13] MEDS: ATENOLOL 25 MG TABLET PO SCH (08:33)
[2020-01-13] MEDS: CARBAMAZEPINE 200 MG TABLET PO SCH ×3 (08:33→19:36)
[2020-01-13] MEDS: BACITRACIN ZINC OINT PACKET 1 EA PACKET TP SCH ×2 (09:47→16:46)
[2020-01-13] MEDS: CLOTRIMAZOLE 1% 15 GM TUBE TP SCH ×2 (09:47→16:46)
--- NOTE | 2020-01-13 11:45 | NUR ---
PATIENT C/O OF LEFT RIB CAGE SHARP, THROBBING PAIN OF 9/10. PERCOCET 5-325MG PO Q4HRS PRN ADMINISTERED. WILL REASSESS PAIN AND CONTINUE TO MONITOR
[2020-01-13 16:00] VITALS: BP 122/64
--- NOTE | 2020-01-13 16:18 | NUR ---
INDIVIDUAL INTERVENTION: SW met with SW at bedside and informed her she will be discharged tomorrow Friday01/14/20 via [facility] at 1330 back to her husbands RV. Pt agreed with discharge plan.
--- NOTE | 2020-01-13 18:00 | NUR ---
PT REFUSED LAB DRAWN FOR TEGRETOL. PT EDUCATED ON BENEFIT AND RISK. PT VERBALIZED UNDERSTANDING. WILL CONTINUE TO MONITOR
--- NOTE | 2020-01-13 18:02 | NUR ---
PER DR C[place]AM REQUEST, HOLD TODAY'S SCHEDULED RAÚL HO, CHARGE NURSE MADE AWARE. WILL CONTINUE TO MONITOR AND ENDORSE TO LIVESTOCK TRUCKER NURSE FOR RENNY
--- NOTE | 2020-01-13 18:58 | NUR ---
GPS RN CLOSING NOTES PT RESTING IN BED AT THIS TIME. PT REMAINED STABLE THROUGHOUT SHIFT. ALL CARE, NEEDS, TREATMENT AND MEDICATIONS ADMINISTERED ANTICIPATED PER ORDER. FALL AND SAFETY PRECAUTIONS IN PLACE AND OBSERVED AT ALL TIMES. BED IN LOWEST LOCKED POSITION, SIDE RAILS UP,HOB ELEVATED TO SEMI FOWLERS POSITION, CALL LIGHT WITHIN REACH. WILL ENDORSE TO CONTINUOUS IMPROVEMENT MANAGER NURSE FOR RENNY.
--- NOTE | 2020-01-13 19:59 | NUR ---
GPS RN NOTE: PAIN PT. C/O OF 03/09 PAIN AROUND RIB CAGE. ADMINISTERED PERCOCET 5-325MG POR PRN ORDERED. WILL CONTINUE TO MONITOR FOR SAFETY AND BEHAVIOR
[2020-01-13 20:15] VITALS: BP 141/69
[2020-01-13] MEDS: TEMAZEPAM 7.5 MG CAPSULE PO PRN (21:29)
--- NOTE | 2020-01-13 21:29 | NUR ---
GPS RN NOTE: INSOMNIA PT. C/O UNABLE TO SLEEP. ADMINISTERED RESTORIL 15 MG PO PRN ORDERED. WILL CONTINUE TO MONITOR FOR SAFETY AND BEHAVIOR
[2020-01-14 08:00] VITALS: BP 153/88
[2020-01-14] MEDS: ENSURE ENLIVE CHOC 237 ML CAN PO SCH ×2 (08:30→12:19)
[2020-01-14] MEDS: BENZTROPINE MESYLATE (1 MG) 1 MG TABLET PO SCH ×2 (08:33→12:18)
[2020-01-14] MEDS: HALOPERIDOL 5 MG TABLET PO SCH ×2 (08:33→12:18)
[2020-01-14] MEDS: PANTOPRAZOLE 40 MG TABLET.DR PO SCH (08:33)
[2020-01-14] MEDS: CARBAMAZEPINE 200 MG TABLET PO SCH (08:33)
[2020-01-14] MEDS: PAROXETINE HCL 10 MG TABLET PO SCH (08:33)
[2020-01-14] MEDS: BACITRACIN ZINC OINT PACKET 1 EA PACKET TP SCH (08:34)
[2020-01-14] MEDS: ATENOLOL 25 MG TABLET PO SCH (08:34)
[2020-01-14] MEDS: CLOTRIMAZOLE 1% 15 GM TUBE TP SCH (08:35)
--- NOTE | 2020-01-14 08:44 | NUR ---
DISCHARGE NOTE: Pt will be discharged at 1:30pm via [facility] to [address] [place] [address]. Pts Kishor [phone] has been notified and agrees with discharge plan. Pts mood is euthymic with congruent affect. Pt denied visual/auditory hallucinations and denied suicidal/homicidal ideation. Pt will follow up with [facility] Address: [facility] [place] [address] and Surgical Oncologist: Dr. Viviane Wells [address] [place] [address] [phone]. The multidisciplinary exit care form was done, printed, signed, and given to the patient.
[2020-01-14] MEDS: oxyCODONE/APAP (5/325 MG) 1 UDTAB TABLET PO PRN (10:11)
--- NOTE | 2020-01-14 12:54 | NUR ---
GPS/RN PT GETTING READY FOR DISCHARGE. REFUSED PICTURES OF SKIN TAKEN ADN REFUSED TO SIGN DISCHARGE PAPERWORK.
--- NOTE | 2020-01-14 14:30 | NUR ---
TRANSPORTATION: SW contacted Trevor [phone] with [facility] to ask about transportation status as pt was suppose to be picked up at 1330. Per Trevor transportation will be arriving between 1500 and 1530
[2020-01-14 16:00] VITALS: BP 133/66
--- NOTE | 2020-01-14 16:35 | NUR ---
TRANSPORTATION: SW contacted Trevor [phone] with [facility] to ask about transportation status as pt was suppose to be picked up between 1500 and 1530. Per Trevor he is not sure if pt will be picked up due to being short staffed and stated he will call the unit for an update.
--- NOTE | 2020-01-14 17:00 | NUR ---
gps/rn pt was picked up by transportation arranged by [facility]. no si or hi at the time of discharge. pt's notified that pt iwas discharged and on the the way home. property and valuables returned. exit care and prescriptions given to the pt
== END 2020-01-14 17:00 | disposition home or self-care (01) | DRG 885 ==
LOC: GPS 13:50
PROVIDERS: ADMIT Psychiatry & Neurology Psychiatry; ATTEND Nurse Practitioner Acute Care
DX: F31.64 Bipolar disorder, current episode mixed, severe, with psychotic features (principal); F23 Brief psychotic disorder; I10 Essential (primary) hypertension; F41.9 Anxiety disorder, unspecified; K21.9 Gastro-esophageal reflux disease without esophagitis; M62.81 Muscle weakness (generalized); R27.8 Other lack of coordination; Z91.81 History of falling; M54.9 Dorsalgia, unspecified; G89.29 Other chronic pain; Z88.0 Allergy status to penicillin; Z88.2 Allergy status to sulfonamides; N83.209 Unspecified ovarian cyst, unspecified side; Z91.14 Patient's other noncompliance with medication regimen
CPT/HCPCS: 36415; 71100-TC; 80053-TC; 80061-TC; 80156-TC; 82962-TC; 84484-TC; 87081-TC; J1200; J1630; J3490; Q0161; Q0177